=== PATIENT | male | born 1970 | race Asian ===

== ENCOUNTER 2018-12-26 05:39 | Emergency (ER) | payer BC ==
[~2018-12-26] VITALS: Ht 177.8 cm; Wt 83.9 kg
[2018-12-26 05:49] VITALS: Ht 177.8 cm; Wt 83.9 kg
[2018-12-26 08:49] LABS: BASOPHIL % 0.9 % (0-2); PLATELET COUNT 301 x10^3mcL (130-400); RED CELL DISTRIBUTION WIDTH 14.3 % (11.5-14.5)
[2018-12-26 09:17] LABS: FREE T4 0.76 ng/dL (0.76-1.46)
[2018-12-26 09:32] LABS: FREE THYROXINE INDEX 1.6 ug/dL (1.4-4.5); T4(THYROXINE) 4.4 ug/dL (4.7-13.3)
[2018-12-26 09:38] LABS: CARBON DIOXIDE 22.7 mmol/L (21-32); ERYTHROCYTE SED RATE 118 mm/hr (0-15); POTASSIUM SERUM 3.7 mmol/L (3.5-5.1)
[2018-12-26 09:44] LABS: ALBUMIN 2.9 g/dL (3.4-5.0); BILIRUBIN TOTAL 0.3 mg/dL (0.20-1.00); CALCIUM 8.2 mg/dL (8.5-10.1); TOTAL PROTEIN, SERUM 7.1 g/dL (6.4-8.2)
[2018-12-26 09:46] LABS: CREATININE SERUM 13.6 mg/dL (0.7-1.3)
[2018-12-26 10:08] LABS: T3 TOTAL 0.79 ng/mL
[2018-12-26 10:20] VITALS: BP 149/86
== END 2018-12-26 10:18 | disposition left against medical advice (07) ==
LOC: ED 05:39
PROVIDERS: Specialist
DX: J18.9 Pneumonia, unspecified organism (principal); D64.9 Anemia, unspecified; F31.9 Bipolar disorder, unspecified; I12.9 Hypertensive chronic kidney disease with stage 1 through stage 4 chronic kidney disease, or unspecified chronic kidney disease; E11.22 Type 2 diabetes mellitus with diabetic chronic kidney disease
CPT/HCPCS: 36600; 84439; J1956; J7030